=== PATIENT | female | born 1950 | race Caucasian/White ===

== ENCOUNTER 2018-04-29 16:32 | Emergency (ER) | payer MEDICARE, OTHER ==
[~2018-04-29] VITALS: Ht 154.9 cm; Wt 56.8 kg
[~2018-04-29 16:32] MED LIST: AMLO5TAB66 PO; ISOS5 PO
[2018-04-29] MEDS ORDERED: HYDROmorphone 2 MG/ML SYRINGE IVP ONE ×2 (17:45→21:45)
[2018-04-29] MEDS ORDERED: ONDANSETRON HCL 4 MG/2 ML VIAL IVP ONE ×2 (17:45→20:00)
[2018-04-29] MEDS ORDERED: SODIUM CHLORIDE 0.9% 1,000 ML IV ONE (21:45)
[2018-04-29 21:46] VITALS: BP 128/79
== END 2018-04-29 21:56 | disposition short-term general hospital (02) ==
LOC: EMS 16:33
DX: S27.2XXA Traumatic hemopneumothorax, initial encounter (principal); S22.41XA Multiple fractures of ribs, right side, initial encounter for closed fracture; I10 Essential (primary) hypertension; E78.00 Pure hypercholesterolemia, unspecified; Z88.6 Allergy status to analgesic agent; Y04.8XXA Assault by other bodily force, initial encounter; Y93.89 Activity, other specified; Y92.89 Other specified places as the place of occurrence of the external cause; Y99.8 Other external cause status
CPT/HCPCS: 71045; 71100; 71250; 96374; 96375; 96376; 99291; J1170; J2405

== ENCOUNTER 2021-08-14 08:43 | Emergency (ER) | payer MEDICARE, MEDICAID ==
[~2021-08-14] VITALS: Ht 154.9 cm; Wt 46.0 kg
[2021-08-14 09:03] VITALS: BP 134/74
[2021-08-14 09:35] LABS: COVID AG,FIA SOURCE NASOPHARYNGEAL
[2021-08-14 09:54] LABS: BASOPHILS % (AUTO) 0.8 % (0.0-2.0); EOSINOPHILS % (AUTO) 8.8 % (1.0-6.0); HEMATOCRIT 46.8 % (36-46); HEMOGLOBIN 16.2 g/dL (12.0-16.0); LYMPHOCYTES # (AUTO) 1.1 K/uL (1.0-4.8); LYMPHOCYTES % (AUTO) 13.2 % (22.0-44.0); MEAN CORPUSCULAR HEMOGLOBIN 31.7 pg (26.0-34.0); MEAN CORPUSCULAR HGB CONC 34.6 G/dL (31.0-37.0); MEAN CORPUSCULAR VOLUME 92 fL (80-100); MONOCYTES # (AUTO) 0.5 K/uL (0.1-1.0); MONOCYTES % (AUTO) 6.6 % (2.0-9.0); NEUTROPHILS # (AUTO) 5.6 K/uL (1.8-7.7); NEUTROPHILS % (AUTO) 70.6 % (40.0-70.0); PLATELET COUNT (AUTO) 212 K/uL (150-450); RED BLOOD CELL COUNT(AUTO) 5.11 MIL/uL (4.00-5.20); RED CELL DISTRIBUTION WIDTH 13.1 % (11.5-14.5)
[2021-08-14 09:55] LABS: INFLUENZA TYPE A NEGATIVE FOR TYPE A (NEGATIVE); INFLUENZA TYPE B NEGATIVE FOR TYPE B (NEGATIVE)
[2021-08-14] MEDS ORDERED: ALBUTEROL SULFATE HFA 90 MCG/PUFF 8 GM INHALER IH ONE (10:00)
[2021-08-14 10:05] LABS: ANION GAP 6 mmol/L (8-16); CALCIUM, TOTAL 9.5 mg/dL (8.8-10.5); CARBON DIOXIDE 32 mmol/L (22-29); CHLORIDE 103 mmol/L (98-107); CREATININE 0.61 mg/dL (0.60-1.30); GLOMERULAR FILTR. RATE CALC > 60 mL/min (>60); GLUCOSE,RANDOM 117 mg/dL (70-110); POTASSIUM 3.9 mmol/L (3.5-5.1); SODIUM SERUM 141 mmol/L (136-145); UREA NITROGEN, BLOOD 11 mg/dL (7-18)
[2021-08-14 10:10] LABS: ALANINE AMINOTRANSFERASE 28 U/L (12-78); ALBUMIN 4.1 g/dL (3.4-5.0); ALKALINE PHOSPHATASE 105 U/L (46-116); ASPARTATE AMINOTRANSFERASE 18 U/L (15-37); BILIRUBIN,TOTAL 0.5 mg/dL (0.1-1.0); TOTAL PROTEIN, SERUM 8.2 g/dL (6.4-8.2)
[2021-08-14 10:23] LABS: B-TYPE NATRIURETIC PEPTIDE 103 pg/mL (0-100)
[2021-08-14] MEDS ORDERED: PredniSONE 20 MG TABLET PO ONE (11:15)
== END 2021-08-14 13:29 | disposition home or self-care (01) ==
LOC: EMS 08:49
DX: U07.1 COVID-19 (principal); J44.1 Chronic obstructive pulmonary disease with (acute) exacerbation; I10 Essential (primary) hypertension; E78.00 Pure hypercholesterolemia, unspecified; J45.909 Unspecified asthma, uncomplicated; Z87.891 Personal history of nicotine dependence; Z79.899 Other long term (current) drug therapy; Z79.82 Long term (current) use of aspirin
CPT/HCPCS: 36415; 71045; 80053; 83880; 84484; 85025; 87426; 87804; 93005; 94640; 99285; J7512; U0003; J3535

== ENCOUNTER 2021-09-02 12:11 | Inpatient (IN) | payer MEDICARE, MEDICAID ==
[~2021-09-02] VITALS: Ht 154.9 cm; Wt 43.6 kg
[2021-09-02 12:52] LABS: BASOPHILS % (AUTO) 0.8 % (0.0-2.0); EOSINOPHILS % (AUTO) 12.9 % (1.0-6.0); HEMATOCRIT 46.1 % (36-46); HEMOGLOBIN 15.8 g/dL (12.0-16.0); LYMPHOCYTES # (AUTO) 1.7 K/uL (1.0-4.8); LYMPHOCYTES % (AUTO) 25.8 % (22.0-44.0); MEAN CORPUSCULAR HEMOGLOBIN 31.3 pg (26.0-34.0); MEAN CORPUSCULAR HGB CONC 34.3 G/dL (31.0-37.0); MEAN CORPUSCULAR VOLUME 91 fL (80-100); MONOCYTES # (AUTO) 0.5 K/uL (0.1-1.0); NEUTROPHILS # (AUTO) 3.4 K/uL (1.8-7.7); NEUTROPHILS % (AUTO) 52.5 % (40.0-70.0); PLATELET COUNT (AUTO) 156 K/uL (150-450); RED BLOOD CELL COUNT(AUTO) 5.06 MIL/uL (4.00-5.20); RED CELL DISTRIBUTION WIDTH 13.1 % (11.5-14.5)
[2021-09-02 13:00] LABS: COVID AG,FIA SOURCE NASOPHARYNGEAL
[2021-09-02 13:11] LABS: ANION GAP 7 mmol/L (8-16); CARBON DIOXIDE 32 mmol/L (22-29); CHLORIDE 106 mmol/L (98-107); CREATININE 0.61 mg/dL (0.60-1.30); GLUCOSE,RANDOM 110 mg/dL (70-110); POTASSIUM 3.4 mmol/L (3.5-5.1); SODIUM SERUM 145 mmol/L (136-145); UREA NITROGEN, BLOOD 14 mg/dL (7-18)
[2021-09-02 13:12] LABS: GLOMERULAR FILTR. RATE CALC > 60 mL/min (>60)
[2021-09-02 13:15] LABS: B-TYPE NATRIURETIC PEPTIDE 34 pg/mL (0-100)
[2021-09-02 13:18] LABS: ALANINE AMINOTRANSFERASE 21 U/L (12-78); ALBUMIN 3.8 g/dL (3.4-5.0); ALKALINE PHOSPHATASE 89 U/L (46-116); ASPARTATE AMINOTRANSFERASE 16 U/L (15-37); BILIRUBIN,TOTAL 0.5 mg/dL (0.1-1.0); CREATINE KINASE, TOTAL ONLY 30 U/L (26-192); TOTAL PROTEIN, SERUM 7.7 g/dL (6.4-8.2)
[2021-09-02] MEDS ORDERED: ALBUTEROL SULFATE HFA 90 MCG/PUFF 8 GM INHALER IH ONE (13:30)
[2021-09-02] MEDS ORDERED: MethylPREDNISolone SOD SUCC 125 MG/2 ML VIAL IVP ONE (13:30)
[2021-09-02 13:40] LABS: INFLUENZA TYPE A NEGATIVE FOR TYPE A (NEGATIVE); INFLUENZA TYPE B NEGATIVE FOR TYPE B (NEGATIVE)
[2021-09-02] MEDS ORDERED: BISACODYL 10 MG RECTAL RECTAL SUPPOSITORY PR PRN (16:45)
[2021-09-02] MEDS ORDERED: MAGNESIUM HYDROXIDE SUSPENSION 30 ML UDCUP PO PRN (16:45)
[2021-09-02] MEDS ORDERED: MORPHINE SULFATE 2 MG/ML SYRINGE IVP PRN (16:45)
[2021-09-02] MEDS ORDERED: HYDROCODONE/ACETAMINOPHEN 5-325 MG TABLET PO PRN (16:45)
[2021-09-02] MEDS ORDERED: ACETAMINOPHEN 325 MG TABLET PO PRN (16:45)
[2021-09-02] MEDS ORDERED: IPRATROPIUM BROMIDE 0.5 MG/2.5 ML NEB SOLUTION NEB PRN (16:45)
[2021-09-02] MEDS ORDERED: ONDANSETRON HCL 4 MG/2 ML VIAL IVP PRN (16:45)
[2021-09-02] MEDS ORDERED: ZOLPIDEM TARTRATE 5 MG TABLET PO PRN (16:45)
[2021-09-02] MEDS ORDERED: ALBUTEROL SULFATE 2.5 MG/0.5 ML NEB SOLUTION NEB PRN (16:45)
[2021-09-02] MEDS: AZITHROMYCIN 500 MG/NS 250 ML IV SCH (17:11)
[2021-09-02] MEDS: CefTRIAXone 1 GM/DEXTROSE 50 ML IV SCH (17:12)
[2021-09-02 17:26] LABS: APPEARANCE,URINE CLEAR (CLEAR); BILIRUBIN,URINE PRELIM. POSITIVE (NEGATIVE); GLUCOSE, URINE (UA) NEGATIVE (NEGATIVE); KETONES,URINE TRACE mg/dL (NEGATIVE); LEUKOCYTE ESTERASE ,URINE NEGATIVE (NEGATIVE); NITRATE,URINE NEGATIVE (NEGATIVE); OCCULT BLOOD,URINE NEGATIVE (NEGATIVE); PH,URINE 5.5 (5.0-8.0); PROTEIN,URINE TRACE (NEGATIVE)
[2021-09-02] MEDS: MethylPREDNISolone SOD SUCC 125 MG/2 ML VIAL IVP SCH (17:41)
[2021-09-02] MEDS: IPRATROPIUM BROMIDE 0.5 MG/2.5 ML NEB SOLUTION NEB SCH (19:33)
[2021-09-02] MEDS: ALBUTEROL SULFATE 2.5 MG/0.5 ML NEB SOLUTION NEB SCH (19:33)
[2021-09-02 21:18] VITALS: BP 141/80
[2021-09-02] MEDS: BENZONATATE 100 MG CAPSULE PO SCH (21:54)
[2021-09-02] MEDS: DOCUSATE SODIUM 100 MG CAPSULE PO SCH (21:54)
[2021-09-02] MEDS: GuaiFENesin SR 600 MG ER TABLET PO SCH (21:55)
[2021-09-03] VITALS: BP 138/76
[2021-09-03] MEDS: HEPARIN SODIUM,PORCINE 5,000 UNITS/ML VIAL SQ SCH ×4 (01:36→23:35)
[2021-09-03] MEDS: MethylPREDNISolone SOD SUCC 125 MG/2 ML VIAL IVP SCH ×5 (02:36→23:35)
[2021-09-03] MEDS: IPRATROPIUM BROMIDE 0.5 MG/2.5 ML NEB SOLUTION NEB SCH ×4 (02:59→20:35)
[2021-09-03] MEDS: ALBUTEROL SULFATE 2.5 MG/0.5 ML NEB SOLUTION NEB SCH ×4 (02:59→20:35)
[2021-09-03 04:00] VITALS: BP 117/71
[2021-09-03 06:55] LABS: BASOPHILS % (AUTO) 0.2 % (0.0-2.0); EOSINOPHILS % (AUTO) 0.1 % (1.0-6.0); HEMATOCRIT 41.9 % (36-46); HEMOGLOBIN 14.8 g/dL (12.0-16.0); LYMPHOCYTES # (AUTO) 0.7 K/uL (1.0-4.8); LYMPHOCYTES % (AUTO) 13.6 % (22.0-44.0); MEAN CORPUSCULAR HGB CONC 35.4 G/dL (31.0-37.0); MEAN CORPUSCULAR VOLUME 91 fL (80-100); MONOCYTES # (AUTO) 0.1 K/uL (0.1-1.0); MONOCYTES % (AUTO) 1.8 % (2.0-9.0); NEUTROPHILS # (AUTO) 4.5 K/uL (1.8-7.7); NEUTROPHILS % (AUTO) 84.3 % (40.0-70.0); PLATELET COUNT (AUTO) 143 K/uL (150-450); RED BLOOD CELL COUNT(AUTO) 4.62 MIL/uL (4.00-5.20); RED CELL DISTRIBUTION WIDTH 12.8 % (11.5-14.5)
[2021-09-03 07:02] LABS: ANION GAP 5 mmol/L (8-16); CALCIUM, TOTAL 8.6 mg/dL (8.8-10.5); CARBON DIOXIDE 31 mmol/L (22-29); CHLORIDE 105 mmol/L (98-107); CREATININE 0.56 mg/dL (0.60-1.30); GLOMERULAR FILTR. RATE CALC > 60 mL/min (>60); GLUCOSE,RANDOM 107 mg/dL (70-110); POTASSIUM 4.5 mmol/L (3.5-5.1); SODIUM SERUM 141 mmol/L (136-145); UREA NITROGEN, BLOOD 14 mg/dL (7-18)
[2021-09-03 08:04] VITALS: BP 126/71
[2021-09-03] MEDS: DOCUSATE SODIUM 100 MG CAPSULE PO SCH ×2 (09:21→20:38)
[2021-09-03] MEDS: GuaiFENesin SR 600 MG ER TABLET PO SCH ×2 (09:21→20:38)
[2021-09-03] MEDS: BENZONATATE 100 MG CAPSULE PO SCH ×3 (09:21→20:38)
[2021-09-03] MEDS: PANTOPRAZOLE SODIUM 40 MG DR TABLET PO SCH (09:22)
[2021-09-03 11:57] VITALS: BP 117/67
[2021-09-03] MEDS ORDERED: SODIUM CHLORIDE 0.9% 100 ML ONE (16:01)
[2021-09-03] MEDS: CefTRIAXone 1 GM/DEXTROSE 50 ML IV SCH (16:03)
[2021-09-03 16:16] VITALS: BP 116/72
[2021-09-03] MEDS: AZITHROMYCIN 500 MG/NS 250 ML IV SCH (18:10)
[2021-09-03 20:20] VITALS: BP 124/78
[2021-09-04 00:15] VITALS: BP 132/73
[2021-09-04] MEDS: ALBUTEROL SULFATE 2.5 MG/0.5 ML NEB SOLUTION NEB SCH ×2 (02:01→09:41)
[2021-09-04] MEDS: IPRATROPIUM BROMIDE 0.5 MG/2.5 ML NEB SOLUTION NEB SCH ×2 (02:01→09:41)
[2021-09-04 04:34] VITALS: BP 143/85
[2021-09-04] MEDS: MethylPREDNISolone SOD SUCC 125 MG/2 ML VIAL IVP SCH (05:59)
[2021-09-04 08:07] VITALS: BP 133/83
[2021-09-04 08:26] LABS: BASOPHILS % (AUTO) 0.1 % (0.0-2.0); EOSINOPHILS % (AUTO) 0 % (1.0-6.0); HEMATOCRIT 37.7 % (36-46); HEMOGLOBIN 13.6 g/dL (12.0-16.0); LYMPHOCYTES # (AUTO) 0.8 K/uL (1.0-4.8); LYMPHOCYTES % (AUTO) 9.4 % (22.0-44.0); MEAN CORPUSCULAR HEMOGLOBIN 32.2 pg (26.0-34.0); MEAN CORPUSCULAR HGB CONC 36.2 G/dL (31.0-37.0); MEAN CORPUSCULAR VOLUME 89 fL (80-100); MONOCYTES # (AUTO) 0.2 K/uL (0.1-1.0); MONOCYTES % (AUTO) 2.6 % (2.0-9.0); NEUTROPHILS # (AUTO) 7.4 K/uL (1.8-7.7); RED BLOOD CELL COUNT(AUTO) 4.23 MIL/uL (4.00-5.20); RED CELL DISTRIBUTION WIDTH 12.7 % (11.5-14.5)
[2021-09-04 08:36] LABS: ANION GAP 7 mmol/L (8-16); CALCIUM, TOTAL 8.5 mg/dL (8.8-10.5); CARBON DIOXIDE 28 mmol/L (22-29); CHLORIDE 106 mmol/L (98-107); CREATININE 0.54 mg/dL (0.60-1.30); GLUCOSE,RANDOM 139 mg/dL (70-110); POTASSIUM 3.5 mmol/L (3.5-5.1); SODIUM SERUM 141 mmol/L (136-145); UREA NITROGEN, BLOOD 12 mg/dL (7-18)
[2021-09-04 08:39] LABS: NEUTROPHILS % (AUTO) 87.9 % (40.0-70.0); PLATELET COUNT (AUTO) 117 K/uL (150-450)
[2021-09-04 08:48] LABS: GLOMERULAR FILTR. RATE CALC > 60 mL/min (>60)
[2021-09-04] MEDS: PANTOPRAZOLE SODIUM 40 MG DR TABLET PO SCH (09:14)
[2021-09-04] MEDS: DOCUSATE SODIUM 100 MG CAPSULE PO SCH (09:14)
[2021-09-04] MEDS: HEPARIN SODIUM,PORCINE 5,000 UNITS/ML VIAL SQ SCH (09:14)
[2021-09-04] MEDS: BENZONATATE 100 MG CAPSULE PO SCH (09:14)
[2021-09-04] MEDS: GuaiFENesin SR 600 MG ER TABLET PO SCH (09:14)
[2021-09-04] MEDS ORDERED: PRED20 PO (11:51)
[2021-09-04] MEDS ORDERED: PRED-409 PO (11:51)
[2021-09-04] MEDS ORDERED: PRED10 PO (11:51)
[2021-09-04] MEDS ORDERED: ALBU8HFA IH (11:53)
== END 2021-09-04 12:30 | disposition home or self-care (01) | DRG 189 ==
LOC: EMS 12:13 → 5N 19:29
PROVIDERS: ADMIT Internal Medicine; ATTEND Internal Medicine
PROC: 5A0935A Assistance with Respiratory Ventilation, Less than 24 Consecutive Hours, High Flow/Velocity Cannula (ICD-10-PCS; principal; 2021-09-03)
DX: J96.01 Acute respiratory failure with hypoxia (principal); E43 Unspecified severe protein-calorie malnutrition; J44.1 Chronic obstructive pulmonary disease with (acute) exacerbation; Z68.1 Body mass index [BMI] 19.9 or less, adult; I10 Essential (primary) hypertension; E87.6 Hypokalemia; Z20.822 Contact with and (suspected) exposure to COVID-19; E78.00 Pure hypercholesterolemia, unspecified; Z87.891 Personal history of nicotine dependence; Z88.8 Allergy status to other drugs, medicaments and biological substances
CPT/HCPCS: 71045; 80048; 80053; 81003; 82550; 83880; 84484; 85025; 85379; 87040; 87804; 93005; 94640; 97162; 99291; J0456; J0696; J1644; J2930; J3535; J7050; 36415-L1; 36415-TC; J7613; U0003

== ENCOUNTER 2021-10-24 12:30 | Inpatient (IN) | payer MEDICARE, MEDICAID ==
[~2021-10-24] VITALS: Ht 154.9 cm; Wt 49.7 kg
[~2021-10-24 12:30] MED LIST changes: +ALBU8HFA IH; +PRED-549 PO; +PRED-554 PO; +PRED-729 PO
[2021-10-24 12:54] LABS: COVID AG,FIA SOURCE NASAL SWAB
[2021-10-24 12:57] LABS: HEMATOCRIT 48.4 % (36-46); HEMOGLOBIN 16.7 g/dL (12.0-16.0); MEAN CORPUSCULAR HEMOGLOBIN 31.7 pg (26.0-34.0); MEAN CORPUSCULAR HGB CONC 34.5 G/dL (31.0-37.0); MEAN CORPUSCULAR VOLUME 92 fL (80-100); PLATELET COUNT (AUTO) 188 K/uL (150-450); RED BLOOD CELL COUNT(AUTO) 5.28 MIL/uL (4.00-5.20); RED CELL DISTRIBUTION WIDTH 12.9 % (11.5-14.5)
[2021-10-24] MEDS ORDERED: ALBUTEROL SULFATE HFA 90 MCG/PUFF 8 GM INHALER IH ONE (13:00)
[2021-10-24] MEDS ORDERED: MethylPREDNISolone SOD SUCC 125 MG/2 ML VIAL IVP ONE (13:00)
[2021-10-24 13:16] LABS: ANION GAP 8 mmol/L (8-16); B-TYPE NATRIURETIC PEPTIDE 39 pg/mL (0-100); CARBON DIOXIDE 29 mmol/L (22-29); CHLORIDE 97 mmol/L (98-107); CREATININE 0.47 mg/dL (0.60-1.30); GLUCOSE,RANDOM 145 mg/dL (70-110); POTASSIUM 4.3 mmol/L (3.5-5.1); SODIUM SERUM 134 mmol/L (136-145); UREA NITROGEN, BLOOD 7 mg/dL (7-18)
[2021-10-24 13:18] LABS: GLOMERULAR FILTR. RATE CALC > 60 mL/min (>60)
[2021-10-24 13:40] LABS: ALANINE AMINOTRANSFERASE 22 U/L (12-78); ALBUMIN 4.6 g/dL (3.4-5.0); ALKALINE PHOSPHATASE 115 U/L (46-116); ASPARTATE AMINOTRANSFERASE 18 U/L (15-37); BILIRUBIN,TOTAL 0.6 mg/dL (0.1-1.0); CREATINE KINASE, TOTAL ONLY 77 U/L (26-192); TOTAL PROTEIN, SERUM 8.8 g/dL (6.4-8.2)
[2021-10-24 13:43] LABS: ABG BASE EXCESS -1.1 mmol/L (-2.0-3.0); ABG CARBOXYHEMOGLOBIN 1.2 % (0.0-1.5); ABG HCO3 23.3 mmol/L (22.0-26.0); ABG METHEMOGLOBIN 0.3 % (0.0-1.5); ABG OXYGEN CONTENT 21.8 mL/dL (15.0-23.0); ABG OXYGEN SATURATION 97.2 % (95.0-98.0); ABG OXYHEMOGLOBIN 95.7 % (94.0-100.0); ABG PCO2 44 mmHg (35-45); ABG PH 7.358 (7.35-7.450); ABG TOTAL HEMOGLOBIN 16.2 G/dL (12.0-18.0); SOURCE, BLOOD GAS ARTERIAL
[2021-10-24 13:45] LABS: O2 DEVICE,BLOOD GAS CANNULA (ROOM AIR); SITE, BLOOD GAS LFT BRACHIAL
[2021-10-24] MEDS ORDERED: ONDANSETRON HCL 4 MG/2 ML VIAL IVP ONE (14:00)
[2021-10-24] MEDS ORDERED: IOHEXOL 350 MG/ML 100 ML VIAL ONE (14:09)
[2021-10-24 14:44] LABS: BAND NEUTROPHILS % (MANUAL) 0 % (0-5)
[2021-10-24 14:45] LABS: EOSINOPHILS % (MANUAL) 16 % (1-6); LYMPHOCYTES % (MANUAL) 13 % (22-44); MONOCYTES % (MANUAL) 1 % (2-9); SEGMENTED NEUTROPHILS % 70 % (40-70)
[2021-10-24] MEDS ORDERED: MAGNESIUM HYDROXIDE SUSPENSION 30 ML UDCUP PO PRN (16:30)
[2021-10-24] MEDS ORDERED: ALBUTEROL SULFATE 2.5 MG/0.5 ML NEB SOLUTION NEB PRN (16:30)
[2021-10-24] MEDS ORDERED: HYDROCODONE/ACETAMINOPHEN 5-325 MG TABLET PO PRN (16:30)
[2021-10-24] MEDS ORDERED: MORPHINE SULFATE 2 MG/ML SYRINGE IVP PRN (16:30)
[2021-10-24] MEDS ORDERED: ZOLPIDEM TARTRATE 5 MG TABLET PO PRN (16:30)
[2021-10-24] MEDS ORDERED: BISACODYL 10 MG RECTAL RECTAL SUPPOSITORY PR PRN (16:30)
[2021-10-24] MEDS ORDERED: IPRATROPIUM BROMIDE 0.5 MG/2.5 ML NEB SOLUTION NEB PRN (16:30)
[2021-10-24] MEDS ORDERED: ONDANSETRON HCL 4 MG/2 ML VIAL IVP PRN (16:30)
[2021-10-24] MEDS ORDERED: ISOS10TA16 PO (16:36)
[2021-10-24 16:47] VITALS: BP 140/78
[2021-10-24] MEDS: MethylPREDNISolone SOD SUCC 125 MG/2 ML VIAL IVP SCH ×2 (18:34→23:33)
[2021-10-24] MEDS ORDERED: SODIUM CHLORIDE 0.9% 1,000 ML ONE (18:43)
[2021-10-24] MEDS: CefTRIAXone 1 GM/DEXTROSE 50 ML IV SCH (18:47)
[2021-10-24] MEDS: IPRATROPIUM BROMIDE 0.5 MG/2.5 ML NEB SOLUTION NEB SCH (20:00)
[2021-10-24] MEDS: ALBUTEROL SULFATE 2.5 MG/0.5 ML NEB SOLUTION NEB SCH (20:00)
[2021-10-24] MEDS: GuaiFENesin SR 600 MG ER TABLET PO SCH (20:31)
[2021-10-24] MEDS: ISOSORBIDE DINITRATE 10 MG TABLET PO SCH (20:31)
[2021-10-24] MEDS: BENZONATATE 100 MG CAPSULE PO SCH (20:31)
[2021-10-24] MEDS: DOCUSATE SODIUM 100 MG CAPSULE PO SCH (20:32)
[2021-10-24 20:38] VITALS: BP 125/83
[2021-10-24] MEDS: AZITHROMYCIN 500 MG/NS 250 ML IV SCH (20:39)
[2021-10-24] MEDS: HEPARIN SODIUM,PORCINE 5,000 UNITS/ML VIAL SQ SCH (23:33)
[2021-10-25 00:35] VITALS: BP 101/68
[2021-10-25] MEDS: ALBUTEROL SULFATE 2.5 MG/0.5 ML NEB SOLUTION NEB SCH ×4 (02:00→19:48)
[2021-10-25] MEDS: IPRATROPIUM BROMIDE 0.5 MG/2.5 ML NEB SOLUTION NEB SCH ×4 (02:00→19:48)
[2021-10-25] MEDS: MethylPREDNISolone SOD SUCC 125 MG/2 ML VIAL IVP SCH (05:02)
[2021-10-25 05:12] VITALS: BP 120/97
[2021-10-25 07:38] VITALS: BP 129/82
[2021-10-25] MEDS: BENZONATATE 100 MG CAPSULE PO SCH ×3 (07:38→20:12)
[2021-10-25] MEDS: PANTOPRAZOLE SODIUM 40 MG DR TABLET PO SCH (07:38)
[2021-10-25] MEDS: DOCUSATE SODIUM 100 MG CAPSULE PO SCH ×2 (07:38→20:12)
[2021-10-25] MEDS: AmLODIPine BESYLATE 5 MG TABLET PO SCH (07:39)
[2021-10-25] MEDS: GuaiFENesin SR 600 MG ER TABLET PO SCH ×2 (07:39→20:11)
[2021-10-25] MEDS: HEPARIN SODIUM,PORCINE 5,000 UNITS/ML VIAL SQ SCH ×3 (07:39→23:26)
[2021-10-25] MEDS: ISOSORBIDE DINITRATE 10 MG TABLET PO SCH ×2 (08:18→20:12)
[2021-10-25 11:42] VITALS: BP 100/66
[2021-10-25] MEDS: MethylPREDNISolone SOD SUCC 40 MG/ML VIAL IVP SCH ×3 (12:55→23:25)
[2021-10-25 15:51] VITALS: BP 113/65
[2021-10-25] MEDS: AZITHROMYCIN 500 MG/NS 250 ML IV SCH (18:11)
[2021-10-25] MEDS: CefTRIAXone 1 GM/DEXTROSE 50 ML IV SCH (18:11)
[2021-10-25 19:37] VITALS: BP 119/54
[2021-10-25] MEDS: ACETAMINOPHEN 325 MG TABLET PO PRN (20:11)
[2021-10-26 00:08] VITALS: BP 117/79
[2021-10-26] MEDS: BUDESONIDE 0.5 MG/2 ML NEB SOLUTION NEB SCH ×3 (01:31→20:18)
[2021-10-26] MEDS: ALBUTEROL SULFATE 2.5 MG/0.5 ML NEB SOLUTION NEB SCH ×4 (01:33→20:18)
[2021-10-26] MEDS: IPRATROPIUM BROMIDE 0.5 MG/2.5 ML NEB SOLUTION NEB SCH ×4 (01:33→20:18)
[2021-10-26 04:59] VITALS: BP 108/68
[2021-10-26] MEDS: MethylPREDNISolone SOD SUCC 40 MG/ML VIAL IVP SCH ×4 (05:09→23:39)
[2021-10-26] MEDS: BENZONATATE 100 MG CAPSULE PO SCH ×3 (08:14→20:12)
[2021-10-26] MEDS: AmLODIPine BESYLATE 5 MG TABLET PO SCH (08:15)
[2021-10-26] MEDS: PANTOPRAZOLE SODIUM 40 MG DR TABLET PO SCH (08:15)
[2021-10-26] MEDS: DOCUSATE SODIUM 100 MG CAPSULE PO SCH ×2 (08:15→20:12)
[2021-10-26] MEDS: GuaiFENesin SR 600 MG ER TABLET PO SCH ×2 (08:15→20:12)
[2021-10-26] MEDS: ISOSORBIDE DINITRATE 10 MG TABLET PO SCH ×2 (08:15→20:13)
[2021-10-26] MEDS: HEPARIN SODIUM,PORCINE 5,000 UNITS/ML VIAL SQ SCH ×3 (08:16→23:40)
[2021-10-26 08:46] VITALS: BP 150/95
[2021-10-26 12:54] VITALS: BP 108/60
[2021-10-26 15:56] VITALS: BP 111/58
[2021-10-26] MEDS: CefTRIAXone 1 GM/DEXTROSE 50 ML IV SCH (18:30)
[2021-10-26] MEDS: AZITHROMYCIN 500 MG/NS 250 ML IV SCH (18:32)
[2021-10-26] MEDS: ACETAMINOPHEN 325 MG TABLET PO PRN (20:11)
[2021-10-26 22:16] VITALS: BP 110/62
[2021-10-27] VITALS: BP 118/66
[2021-10-27] MEDS: ALBUTEROL SULFATE 2.5 MG/0.5 ML NEB SOLUTION NEB SCH ×4 (02:56→20:01)
[2021-10-27] MEDS: IPRATROPIUM BROMIDE 0.5 MG/2.5 ML NEB SOLUTION NEB SCH ×4 (02:56→20:01)
[2021-10-27 04:00] VITALS: BP 114/68
[2021-10-27] MEDS: MethylPREDNISolone SOD SUCC 40 MG/ML VIAL IVP SCH ×3 (06:33→18:05)
[2021-10-27 07:32] VITALS: BP 131/73
[2021-10-27] MEDS: HEPARIN SODIUM,PORCINE 5,000 UNITS/ML VIAL SQ SCH ×2 (08:00→15:59)
[2021-10-27] MEDS: BUDESONIDE 0.5 MG/2 ML NEB SOLUTION NEB SCH ×2 (08:19→20:01)
[2021-10-27] MEDS: DOCUSATE SODIUM 100 MG CAPSULE PO SCH ×2 (10:29→20:43)
[2021-10-27] MEDS: GuaiFENesin SR 600 MG ER TABLET PO SCH ×2 (10:30→20:43)
[2021-10-27] MEDS: ISOSORBIDE DINITRATE 10 MG TABLET PO SCH ×2 (10:30→20:44)
[2021-10-27] MEDS: BENZONATATE 100 MG CAPSULE PO SCH ×3 (10:30→20:44)
[2021-10-27] MEDS: PANTOPRAZOLE SODIUM 40 MG DR TABLET PO SCH (10:30)
[2021-10-27] MEDS: AmLODIPine BESYLATE 5 MG TABLET PO SCH (10:30)
[2021-10-27 11:25] VITALS: BP 105/62
[2021-10-27 16:11] VITALS: BP 117/70
[2021-10-27] MEDS: CefTRIAXone 1 GM/DEXTROSE 50 ML IV SCH (18:04)
[2021-10-27] MEDS: AZITHROMYCIN 500 MG/NS 250 ML IV SCH (18:05)
[2021-10-27 20:28] VITALS: BP 123/76
[2021-10-27 20:52] LABS: ABG BASE EXCESS 3.4 mmol/L (-2.0-3.0); ABG CARBOXYHEMOGLOBIN 0.8 % (0.0-1.5); ABG HCO3 26.9 mmol/L (22.0-26.0); ABG METHEMOGLOBIN 0.3 % (0.0-1.5); ABG OXYGEN CONTENT 19.4 mL/dL (15.0-23.0); ABG OXYGEN SATURATION 94.7 % (95.0-98.0); ABG OXYHEMOGLOBIN 93.7 % (94.0-100.0); ABG PCO2 44 mmHg (35-45); ABG PH 7.417 (7.35-7.450); ABG TOTAL HEMOGLOBIN 14.7 G/dL (12.0-18.0); PO2, ARTERIAL BG 68.4 mmHg (75.0-83.0); SOURCE, BLOOD GAS ARTERIAL; TEMPERATURE, FAHRENHEIT, BG 98.1 FAHREN (96.0-98.6)
[2021-10-27 20:53] LABS: O2 DEVICE,BLOOD GAS CANNULA (ROOM AIR); SITE, BLOOD GAS RT RADIAL
[2021-10-28] MEDS: HEPARIN SODIUM,PORCINE 5,000 UNITS/ML VIAL SQ SCH ×3 (00:05→16:03)
[2021-10-28] MEDS: MethylPREDNISolone SOD SUCC 40 MG/ML VIAL IVP SCH ×4 (00:05→17:57)
[2021-10-28] MEDS: ALBUTEROL SULFATE 2.5 MG/0.5 ML NEB SOLUTION NEB SCH ×4 (01:54→19:38)
[2021-10-28] MEDS: IPRATROPIUM BROMIDE 0.5 MG/2.5 ML NEB SOLUTION NEB SCH ×4 (01:55→19:38)
[2021-10-28 01:58] VITALS: BP 123/72
[2021-10-28 04:43] VITALS: BP 124/82
[2021-10-28 08:27] VITALS: BP 133/81
[2021-10-28] MEDS: DOCUSATE SODIUM 100 MG CAPSULE PO SCH ×2 (09:00→20:18)
[2021-10-28] MEDS: GuaiFENesin SR 600 MG ER TABLET PO SCH ×2 (09:12→20:17)
[2021-10-28] MEDS: ISOSORBIDE DINITRATE 10 MG TABLET PO SCH ×2 (09:12→20:17)
[2021-10-28] MEDS: AmLODIPine BESYLATE 5 MG TABLET PO SCH (09:12)
[2021-10-28] MEDS: BENZONATATE 100 MG CAPSULE PO SCH ×3 (09:12→20:17)
[2021-10-28] MEDS: PANTOPRAZOLE SODIUM 40 MG DR TABLET PO SCH (09:13)
[2021-10-28 13:19] VITALS: BP 138/78
[2021-10-28] MEDS: BUDESONIDE 0.5 MG/2 ML NEB SOLUTION NEB SCH ×2 (14:13→19:38)
[2021-10-28] MEDS: CefTRIAXone 1 GM/DEXTROSE 50 ML IV SCH (17:57)
[2021-10-28 18:37] VITALS: BP 129/69
[2021-10-28] MEDS: AZITHROMYCIN 500 MG/NS 250 ML IV SCH (20:16)
[2021-10-28 20:37] VITALS: BP 110/65
[2021-10-29] MEDS: HEPARIN SODIUM,PORCINE 5,000 UNITS/ML VIAL SQ SCH ×4 (00:09→23:30)
[2021-10-29] MEDS: MethylPREDNISolone SOD SUCC 40 MG/ML VIAL IVP SCH ×5 (00:10→23:30)
[2021-10-29 00:14] VITALS: BP 114/66
[2021-10-29] MEDS: IPRATROPIUM BROMIDE 0.5 MG/2.5 ML NEB SOLUTION NEB SCH ×4 (01:53→20:06)
[2021-10-29] MEDS: ALBUTEROL SULFATE 2.5 MG/0.5 ML NEB SOLUTION NEB SCH ×4 (01:53→20:06)
[2021-10-29 04:05] VITALS: BP 99/62
[2021-10-29 08:31] VITALS: BP 121/71
[2021-10-29] MEDS: GuaiFENesin SR 600 MG ER TABLET PO SCH ×2 (08:33→19:45)
[2021-10-29] MEDS: AmLODIPine BESYLATE 5 MG TABLET PO SCH (08:33)
[2021-10-29] MEDS: BENZONATATE 100 MG CAPSULE PO SCH ×3 (08:33→19:45)
[2021-10-29] MEDS: PANTOPRAZOLE SODIUM 40 MG DR TABLET PO SCH (08:34)
[2021-10-29] MEDS: DOCUSATE SODIUM 100 MG CAPSULE PO SCH ×2 (08:34→19:45)
[2021-10-29] MEDS: ISOSORBIDE DINITRATE 10 MG TABLET PO SCH ×2 (08:34→19:45)
[2021-10-29 08:38] VITALS: BP 125/71
[2021-10-29 08:39] LABS: EOSINOPHILS % (AUTO) 0 % (1.0-6.0); HEMOGLOBIN 15.2 g/dL (12.0-16.0); LYMPHOCYTES # (AUTO) 0.5 K/uL (1.0-4.8); MEAN CORPUSCULAR HEMOGLOBIN 31.3 pg (26.0-34.0); MEAN CORPUSCULAR HGB CONC 33.9 G/dL (31.0-37.0); MEAN CORPUSCULAR VOLUME 92 fL (80-100); MONOCYTES # (AUTO) 0.1 K/uL (0.1-1.0); MONOCYTES % (AUTO) 1.3 % (2.0-9.0); NEUTROPHILS # (AUTO) 5.5 K/uL (1.8-7.7); PLATELET COUNT (AUTO) 197 K/uL (150-450); RED BLOOD CELL COUNT(AUTO) 4.87 MIL/uL (4.00-5.20); RED CELL DISTRIBUTION WIDTH 12.9 % (11.5-14.5)
[2021-10-29] MEDS: BUDESONIDE 0.5 MG/2 ML NEB SOLUTION NEB SCH ×2 (08:39→20:06)
[2021-10-29 08:49] LABS: NEUTROPHILS % (AUTO) 89.7 % (40.0-70.0)
[2021-10-29 08:50] LABS: ANION GAP 4 mmol/L (8-16); CALCIUM, TOTAL 8.6 mg/dL (8.8-10.5); CARBON DIOXIDE 32 mmol/L (22-29); CHLORIDE 99 mmol/L (98-107); CREATININE 0.58 mg/dL (0.60-1.30); GLUCOSE,RANDOM 157 mg/dL (70-110); POTASSIUM 4.9 mmol/L (3.5-5.1); SODIUM SERUM 135 mmol/L (136-145); UREA NITROGEN, BLOOD 14 mg/dL (7-18)
[2021-10-29 08:51] LABS: GLOMERULAR FILTR. RATE CALC > 60 mL/min (>60)
[2021-10-29 08:56] LABS: ALANINE AMINOTRANSFERASE 19 U/L (12-78); ALBUMIN 3.6 g/dL (3.4-5.0); ALKALINE PHOSPHATASE 74 U/L (46-116); ASPARTATE AMINOTRANSFERASE 11 U/L (15-37); BILIRUBIN,TOTAL 0.5 mg/dL (0.1-1.0); TOTAL PROTEIN, SERUM 7.1 g/dL (6.4-8.2)
[2021-10-29 12:00] VITALS: BP 122/71
[2021-10-29] MEDS: CefTRIAXone 1 GM/DEXTROSE 50 ML IV SCH (17:12)
[2021-10-29] MEDS: AZITHROMYCIN 500 MG/NS 250 ML IV SCH (19:44)
[2021-10-29 21:50] VITALS: BP 144/85
[2021-10-30 01:19] VITALS: BP 129/74
[2021-10-30] MEDS: IPRATROPIUM BROMIDE 0.5 MG/2.5 ML NEB SOLUTION NEB SCH ×3 (01:48→13:09)
[2021-10-30] MEDS: ALBUTEROL SULFATE 2.5 MG/0.5 ML NEB SOLUTION NEB SCH ×3 (01:48→13:08)
[2021-10-30 04:38] VITALS: BP 118/66
[2021-10-30] MEDS: MethylPREDNISolone SOD SUCC 40 MG/ML VIAL IVP SCH ×2 (05:20→11:34)
[2021-10-30 08:40] VITALS: BP 140/73
[2021-10-30] MEDS: GuaiFENesin SR 600 MG ER TABLET PO SCH (09:52)
[2021-10-30] MEDS: PANTOPRAZOLE SODIUM 40 MG DR TABLET PO SCH (09:52)
[2021-10-30] MEDS: AmLODIPine BESYLATE 5 MG TABLET PO SCH (09:52)
[2021-10-30] MEDS: ISOSORBIDE DINITRATE 10 MG TABLET PO SCH (09:53)
[2021-10-30] MEDS: DOCUSATE SODIUM 100 MG CAPSULE PO SCH (09:53)
[2021-10-30] MEDS: BENZONATATE 100 MG CAPSULE PO SCH (09:53)
[2021-10-30] MEDS: HEPARIN SODIUM,PORCINE 5,000 UNITS/ML VIAL SQ SCH (09:53)
[2021-10-30 12:42] VITALS: BP 124/69
[2021-10-30] MEDS: BUDESONIDE 0.5 MG/2 ML NEB SOLUTION NEB SCH (13:09)
[2021-10-30] MEDS ORDERED: ISOS10TA16 PO (14:59)
[2021-10-30] MEDS ORDERED: BUDE180H IH (14:59)
[2021-10-30] MEDS ORDERED: AMOX1TAB16 PO (14:59)
[2021-10-30] MEDS ORDERED: BENZ-70 PO (14:59)
[2021-10-30] MEDS ORDERED: GUAIF600 PO (14:59)
[2021-10-30] MEDS ORDERED: PredniSONE 20 MG TABLET PO ONE (15:00)
== END 2021-10-30 15:40 | disposition home or self-care (01) | DRG 189 ==
LOC: EMS 12:35 → 5N 16:01
PROVIDERS: ADMIT Internal Medicine; ATTEND Internal Medicine
DX: J96.00 Acute respiratory failure, unspecified whether with hypoxia or hypercapnia (principal); J44.1 Chronic obstructive pulmonary disease with (acute) exacerbation; E44.0 Moderate protein-calorie malnutrition; E78.5 Hyperlipidemia, unspecified; I10 Essential (primary) hypertension; Z68.20 Body mass index [BMI] 20.0-20.9, adult; E78.00 Pure hypercholesterolemia, unspecified; I20.9 Angina pectoris, unspecified; Z20.822 Contact with and (suspected) exposure to COVID-19; Z87.891 Personal history of nicotine dependence; Z88.8 Allergy status to other drugs, medicaments and biological substances
CPT/HCPCS: 36600; 71045; 71275; 80053; 82550; 82805; 83880; 84484; 85025; 85379; 87040; 93005; 94640; 99291; J0456; J0696; J1644; J2405; J2920; J2930; J3535; J7030; Q9967; 36415-L1; 36415-TC; J7613

== ENCOUNTER 2021-12-11 19:20 | Inpatient (IN) | payer MEDICARE, MEDICAID ==
[~2021-12-11] VITALS: Ht 154.9 cm; Wt 51.8 kg
[~2021-12-11 19:20] MED LIST changes: +AMOX1TAB16 PO; +BENZ-70 PO; +BUDE180H IH; +GUAIF600 PO; +ISOS10TA16 PO; -ISOS5 PO; -PRED-549 PO; -PRED-554 PO; -PRED-729 PO
[2021-12-11] MEDS ORDERED: IPRATROPIUM BROMIDE 0.5 MG/2.5 ML NEB SOLUTION NEB ONE ×2 (19:45→20:15)
[2021-12-11] MEDS ORDERED: ALBUTEROL SULFATE 2.5 MG/0.5 ML NEB SOLUTION NEB ONE ×2 (19:45→20:15)
[2021-12-11 20:06] LABS: HEMOGLOBIN 16.2 g/dL (12.0-16.0); MEAN CORPUSCULAR HEMOGLOBIN 30.6 pg (26.0-34.0); MEAN CORPUSCULAR HGB CONC 33.7 G/dL (31.0-37.0); MEAN CORPUSCULAR VOLUME 91 fL (80-100); PLATELET COUNT (AUTO) 204 K/uL (150-450); RED CELL DISTRIBUTION WIDTH 12.7 % (11.5-14.5)
[2021-12-11] MEDS ORDERED: CefTRIAXone 1 GM/DEXTROSE 50 ML IV ONE (20:10)
[2021-12-11] MEDS ORDERED: AZITHROMYCIN 500 MG/NS 250 ML IV ONE (20:10)
[2021-12-11 20:15] LABS: ANION GAP 10 mmol/L (8-16); CALCIUM, TOTAL 8.7 mg/dL (8.8-10.5); CARBON DIOXIDE 31 mmol/L (22-29); CHLORIDE 101 mmol/L (98-107); CREATININE 0.59 mg/dL (0.60-1.30); GLUCOSE,RANDOM 164 mg/dL (70-110); POTASSIUM 3.8 mmol/L (3.5-5.1); SODIUM SERUM 142 mmol/L (136-145); UREA NITROGEN, BLOOD 7 mg/dL (7-18)
[2021-12-11] MEDS ORDERED: MethylPREDNISolone SOD SUCC 125 MG/2 ML VIAL IVP ONE (20:15)
[2021-12-11] MEDS ORDERED: OXYGEN THERAPY IH SCH (20:15)
[2021-12-11] MEDS ORDERED: ACETAMINOPHEN 325 MG TABLET PO PRN (20:15)
[2021-12-11] MEDS ORDERED: ALBUTEROL SULFATE 5 MG/ML 20 ML NEB SOLN [BULK] NEB ONE (20:15)
[2021-12-11] MEDS ORDERED: ONDANSETRON HCL 4 MG/2 ML VIAL IVP PRN ×2 (20:15→22:00)
[2021-12-11 20:17] LABS: GLOMERULAR FILTR. RATE CALC > 60 mL/min (>60)
[2021-12-11 20:21] LABS: ALANINE AMINOTRANSFERASE 28 U/L (12-78); ALBUMIN 4.3 g/dL (3.4-5.0); ALKALINE PHOSPHATASE 109 U/L (46-116); ASPARTATE AMINOTRANSFERASE 27 U/L (15-37); BILIRUBIN,TOTAL 0.5 mg/dL (0.1-1.0); CREATINE KINASE, TOTAL ONLY 63 U/L (26-192)
[2021-12-11 20:25] LABS: BAND NEUTROPHILS % (MANUAL) 2 % (0-5); EOSINOPHILS % (MANUAL) 22 % (1-6); LYMPHOCYTES % (MANUAL) 14 % (22-44); MONOCYTES % (MANUAL) 2 % (2-9); REACTIVE LYMPHOCYTES 4 % (0-0); SEGMENTED NEUTROPHILS % 56 % (40-70)
[2021-12-11 20:27] LABS: COVID AG,FIA SOURCE NASOPHARYNGEAL
[2021-12-11 20:32] LABS: B-TYPE NATRIURETIC PEPTIDE 41 pg/mL (0-100)
[2021-12-11 20:45] LABS: INFLUENZA TYPE A NEGATIVE FOR TYPE A (NEGATIVE); INFLUENZA TYPE B NEGATIVE FOR TYPE B (NEGATIVE)
[2021-12-11] MEDS ORDERED: CLOPIDOGREL BISULFATE 75 MG TABLET PO ONE (20:45)
[2021-12-11] MEDS ORDERED: LORazepam 2 MG/ML VIAL IVP ONE (21:15)
[2021-12-11] MEDS ORDERED: OxyCODONE HCL/ACETAMINOPHEN 5-325 MG TABLET PO PRN (22:00)
[2021-12-11] MEDS ORDERED: BENZONATATE 100 MG CAPSULE PO PRN (22:00)
[2021-12-11] MEDS ORDERED: IPRATROPIUM BROMIDE 0.5 MG/2.5 ML NEB SOLUTION NEB SCH (23:00)
[2021-12-11] MEDS ORDERED: ALBUTEROL SULFATE 2.5 MG/0.5 ML NEB SOLUTION NEB SCH (23:00)
[2021-12-11 23:25] VITALS: BP 137/78
[2021-12-11] MEDS: AmLODIPine BESYLATE 5 MG TABLET PO SCH (23:38)
[2021-12-11] MEDS: HEPARIN SODIUM,PORCINE 5,000 UNITS/ML VIAL SQ SCH (23:46)
[2021-12-11] MEDS: MethylPREDNISolone SOD SUCC 125 MG/2 ML VIAL IVP SCH (23:46)
[2021-12-12] MEDS ORDERED: PNEUMOCOCCAL VACCINE POLYVALENT 0.5 ML VIAL [PPSV23] IM. ONE (03:45)
[2021-12-12 04:32] VITALS: BP 98/52
[2021-12-12] MEDS: MethylPREDNISolone SOD SUCC 125 MG/2 ML VIAL IVP SCH ×4 (06:06→23:14)
[2021-12-12 07:31] VITALS: BP 128/75
[2021-12-12] MEDS: DOCUSATE SODIUM 100 MG CAPSULE PO SCH ×2 (07:57→20:45)
[2021-12-12] MEDS: HEPARIN SODIUM,PORCINE 5,000 UNITS/ML VIAL SQ SCH ×3 (07:57→23:14)
[2021-12-12] MEDS: FAMOTIDINE 20 MG TABLET PO SCH (07:57)
[2021-12-12] MEDS: IPRATROPIUM BROMIDE 0.5 MG/2.5 ML NEB SOLUTION NEB PRN ×3 (08:01→16:35)
[2021-12-12] MEDS: ALBUTEROL SULFATE 2.5 MG/0.5 ML NEB SOLUTION NEB PRN ×4 (08:01→19:49)
[2021-12-12] MEDS: ACETAMINOPHEN 325 MG TABLET PO PRN ×3 (08:06→20:45)
[2021-12-12] MEDS ORDERED: ALBUTEROL SULFATE 2.5 MG/0.5 ML NEB SOLUTION NEB ONE (08:15)
[2021-12-12] MEDS ORDERED: IPRATROPIUM BROMIDE 0.5 MG/2.5 ML NEB SOLUTION NEB ONE (08:15)
[2021-12-12 11:39] VITALS: BP 156/81
[2021-12-12] MEDS: ALBUTEROL SULFATE 2.5 MG/0.5 ML NEB SOLUTION NEB SCH ×4 (12:11→22:59)
[2021-12-12] MEDS: IPRATROPIUM BROMIDE 0.5 MG/2.5 ML NEB SOLUTION NEB SCH ×4 (12:11→22:59)
[2021-12-12 15:32] VITALS: BP 165/89
[2021-12-12] MEDS: BENZONATATE 100 MG CAPSULE PO SCH ×2 (16:18→20:44)
[2021-12-12] MEDS: HYDROCODONE/CHLORPHEN POLIS 10-8 MG/5 ML ORAL.SYG PO SCH ×2 (16:23→23:13)
[2021-12-12] MEDS: BUDESONIDE 0.5 MG/2 ML NEB SOLUTION NEB SCH (19:25)
[2021-12-12 19:35] VITALS: BP 131/77
[2021-12-12] MEDS ORDERED: 0.9% SODIUM CHLORIDE 5 ML NEB SOLUTION NEB ONE (19:47)
[2021-12-12] MEDS: ISOSORBIDE DINITRATE 10 MG TABLET PO SCH (20:44)
[2021-12-12] MEDS: AmLODIPine BESYLATE 5 MG TABLET PO SCH (20:45)
[2021-12-12 23:33] VITALS: BP 116/72
[2021-12-13] MEDS: IPRATROPIUM BROMIDE 0.5 MG/2.5 ML NEB SOLUTION NEB SCH ×6 (02:21→23:56)
[2021-12-13] MEDS: ALBUTEROL SULFATE 2.5 MG/0.5 ML NEB SOLUTION NEB SCH ×6 (03:12→23:56)
[2021-12-13 04:30] VITALS: BP 105/63
[2021-12-13] MEDS: MethylPREDNISolone SOD SUCC 125 MG/2 ML VIAL IVP SCH ×3 (05:50→17:53)
[2021-12-13 07:48] VITALS: BP 105/67
[2021-12-13] MEDS: DOCUSATE SODIUM 100 MG CAPSULE PO SCH ×2 (08:02→20:30)
[2021-12-13] MEDS: HEPARIN SODIUM,PORCINE 5,000 UNITS/ML VIAL SQ SCH ×2 (08:02→16:06)
[2021-12-13] MEDS: ISOSORBIDE DINITRATE 10 MG TABLET PO SCH ×2 (08:03→20:29)
[2021-12-13] MEDS: FAMOTIDINE 20 MG TABLET PO SCH (08:03)
[2021-12-13] MEDS: BENZONATATE 100 MG CAPSULE PO SCH ×3 (08:03→20:29)
[2021-12-13] MEDS: HYDROCODONE/CHLORPHEN POLIS 10-8 MG/5 ML ORAL.SYG PO SCH ×2 (08:04→16:06)
[2021-12-13] MEDS: BUDESONIDE 0.5 MG/2 ML NEB SOLUTION NEB SCH ×2 (08:23→20:56)
[2021-12-13] MEDS ORDERED: AmLODIPine BESYLATE 5 MG TABLET PO SCH (09:00)
[2021-12-13 11:05] VITALS: BP 116/71
[2021-12-13 15:38] VITALS: BP 128/72
[2021-12-13 18:38] VITALS: BP 152/77
[2021-12-13 19:38] VITALS: BP 140/85
[2021-12-13] MEDS: AmLODIPine BESYLATE 5 MG TABLET PO SCH (20:29)
[2021-12-14] MEDS: HYDROCODONE/CHLORPHEN POLIS 10-8 MG/5 ML ORAL.SYG PO SCH ×2 (00:31→09:40)
[2021-12-14] MEDS: HEPARIN SODIUM,PORCINE 5,000 UNITS/ML VIAL SQ SCH ×2 (00:31→09:41)
[2021-12-14] MEDS: MethylPREDNISolone SOD SUCC 125 MG/2 ML VIAL IVP SCH ×3 (00:31→13:07)
[2021-12-14] MEDS: ALBUTEROL SULFATE 2.5 MG/0.5 ML NEB SOLUTION NEB SCH ×4 (04:59→14:00)
[2021-12-14] MEDS: IPRATROPIUM BROMIDE 0.5 MG/2.5 ML NEB SOLUTION NEB SCH ×4 (04:59→14:00)
[2021-12-14 05:13] VITALS: BP 145/80
[2021-12-14 08:00] VITALS: BP 139/78
[2021-12-14] MEDS: BUDESONIDE 0.5 MG/2 ML NEB SOLUTION NEB SCH (08:51)
[2021-12-14] MEDS: BENZONATATE 100 MG CAPSULE PO SCH (09:40)
[2021-12-14] MEDS: ISOSORBIDE DINITRATE 10 MG TABLET PO SCH (09:40)
[2021-12-14] MEDS: FAMOTIDINE 20 MG TABLET PO SCH (09:41)
[2021-12-14] MEDS: DOCUSATE SODIUM 100 MG CAPSULE PO SCH (09:41)
[2021-12-14] MEDS ORDERED: GUAIF10 PO (10:17)
[2021-12-14] MEDS ORDERED: ALBU8HFA IH (10:17)
== END 2021-12-14 15:55 | disposition home or self-care (01) | DRG 189 ==
LOC: EMS 19:20 → 5S 21:00 → 6N 12-13 18:20
PROVIDERS: ADMIT Internal Medicine; ATTEND Internal Medicine
DX: J96.21 Acute and chronic respiratory failure with hypoxia (principal); J44.1 Chronic obstructive pulmonary disease with (acute) exacerbation; I10 Essential (primary) hypertension; E78.00 Pure hypercholesterolemia, unspecified; Z20.822 Contact with and (suspected) exposure to COVID-19; Z99.81 Dependence on supplemental oxygen; Z87.891 Personal history of nicotine dependence; Z88.8 Allergy status to other drugs, medicaments and biological substances
CPT/HCPCS: 71045; 80053; 82550; 83880; 84484; 85025; 87804; 93005; 94060; 94640; 94644; 99291; J0456; J0696; J1644; J2060; J2405; J2930; 36415-L1; 36415-TC; J7611; J7613

== ENCOUNTER 2023-03-16 12:03 | Emergency (ER) | payer MEDICARE, MEDICAID ==
[~2023-03-16] VITALS: Ht 157.5 cm; Wt 63.6 kg
[~2023-03-16 12:03] MED LIST changes: +ALBU18HF12 IH; -ALBU8HFA IH; -AMOX1TAB16 PO; +BENZ-227 PO; -BENZ-70 PO; +GUAIF10 PO
[2023-03-16 12:08] VITALS: TEMP 98.3
[2023-03-16] MEDS ORDERED: THIA100T92 PO (12:09)
[2023-03-16] MEDS ORDERED: TIOT4MIS5 PO (12:09)
[2023-03-16] MEDS ORDERED: CLOP75TA32 PO (12:09)
[2023-03-16] MEDS ORDERED: CYAN500T56 PO (12:09)
[2023-03-16] MEDS ORDERED: FLUO-341 PO (12:09)
[2023-03-16] MEDS ORDERED: AMLO10TA55 PO (12:09)
[2023-03-16] MEDS ORDERED: ISOS20TA9 PO (12:09)
[2023-03-16] MEDS ORDERED: CALC-26 PO (12:09)
[2023-03-16] MEDS ORDERED: MULT1TAB67 PO (12:09)
[2023-03-16] MEDS ORDERED: BECL10.6 PO (12:09)
[2023-03-16] MEDS ORDERED: LOSA-381 PO (12:09)
[2023-03-16] MEDS ORDERED: ATOR40TA71 PO (12:09)
[2023-03-16] MEDS ORDERED: PANT40TA54 PO (12:09)
[2023-03-16] MEDS ORDERED: ALEN70TA80 PO (12:09)
[2023-03-16] MEDS ORDERED: QUET25TA36 PO (12:09)
[2023-03-16] MEDS ORDERED: PSYL284P7 PO (12:09)
[2023-03-16] MEDS ORDERED: IBUPROFEN 600 MG TABLET PO ONE (12:30)
[2023-03-16 13:15] VITALS: BP 129/81; PULSE 79; RESP 16
== END 2023-03-16 13:40 | disposition home or self-care (01) ==
LOC: EMS 12:17
DX: M25.551 Pain in right hip (principal); F32.A Depression, unspecified; J44.9 Chronic obstructive pulmonary disease, unspecified; E78.00 Pure hypercholesterolemia, unspecified; I10 Essential (primary) hypertension; Z87.891 Personal history of nicotine dependence; Z98.890 Other specified postprocedural states; Z88.6 Allergy status to analgesic agent; W18.09XA Striking against other object with subsequent fall, initial encounter; Y93.89 Activity, other specified; Y92.89 Other specified places as the place of occurrence of the external cause; Y99.8 Other external cause status
CPT/HCPCS: 73502; 73552; 99284